=== PATIENT | male | born 2000 | race Caucasian/White ===

== ENCOUNTER 2023-12-16 01:53 | Emergency (ER) | payer OTHER, SELFPAY ==
[2023-12-16 01:55] VITALS: BP 149/93; PULSE 103; RESP 22; TEMP 36.3; O2SAT 96; BMI 30.3
--- NOTE | 2023-12-16 02:04 | EDS_ITS ---
HPI History of Present Illness Chief Complaint: Shortness of Breath Informant: patient and spouse/S.O. Narrative Narrative: Sudden dyspnea wheezing a few hours ago. Forcing self to cough. Denies tobacco. Denies COPD or asthma. Denies recent travel, surgeries, or immobilizations. No history of PE or DVT. Has used inhaler in the past. He states there has been a cat in the house for the last few months, however at this is first time with dyspnea and wheezing episode around the cat. Prior similar symptoms: Yes PFSH PFSH Allergy/AdvReac Type Severity Reaction Status Date / Time No Known Allergies Allergy Verified 12/16/23 01:55 Surgical History [place] teeth extracted Social History Smoking Status: Current every day smoker tobacco type: cigarettes ROS ROS ED Constitutional Constitutional ED: Denies chills, fever(s) or sweats Eyes Eyes: Denies change in vision ENT ENT ED: Denies dysphagia or sore throat Cardiovascular Cardiovascular: Denies chest pain, leg edema, palpitations or racing heartbeat Respiratory/Chest Respiratory/Chest: Reports dyspnea and other Details: Wheezing ; Denies cough or dyspnea on exertion Gastrointestinal Gastrointestinal: Denies abdominal pain, diarrhea, nausea or vomiting Genitourinary Genitourinary ED: Denies dysuria, hematuria or urinary frequency Musculoskeletal Musculoskeletal: Denies back pain, extremity pain or neck pain Integumentary Denies rash or wounds Neurologic Neurologic: Denies headache(s), paresthesias or weakness EXAM Physical Exam Const Vital Signs: 12/16/23 01:55 12/16/23 01:58 12/16/23 02:26 Temperature 97.4 F L Temperature Source Temporal Pulse Rate 103 H 90 Respiratory Rate 22 H 14 Respiratory Effort Short of Breath Respiratory Depth Normal Respiratory Pattern Normal Normal Blood Pressure 149/93 H Blood Pressure Mean 111 Pulse Ox 96 Oxygen Delivery Method Room Air Room Air 12/16/23 02:54 Temperature 98.1 F Temperature Source Pulse Rate 84 Respiratory Rate 16 Respiratory Effort Respiratory Depth Respiratory Pattern Blood Pressure 135/84 H Blood Pressure Mean 101 Pulse Ox 100 Oxygen Delivery Method Positive well nourished and well developed General Appearance ED: well developed and NAD HEENT Reports moist mucous membranes normocephalic and atraumatic Eyes PERRL, EOMs intact bilaterally and conjunctivae normal General Eye ED: Yes normal appearance of both eyes Neck no lymphadenopathy and supple General: Negative for tenderness Chest Wall Chest: Negative for tenderness Resp Resp Narrative: Diffuse expiratory wheezing, no distress Effort and Inspection: symmetric chest movement; Negative for respiratory distress Cardio regular rate, regular rhythm and no murmurs Cardio Narrative: Heart rate 96 Peripheral Pulses: pulses 2+ throughout GI normal to inspection, nondistended, normoactive bowel sounds and non-tender Palpation: Negative for guarding or rebound tenderness present Back/Spine no CVA tenderness and no thoracic nor lumbar tenderness Extremity normal to inspection General Extremety ED: Negative for edema or tenderness General Extremity: Negative for edema Neuro oriented x3 and no sensory deficits noted Sensorium / Orientation: awake and alert Skin no rashes or lesions noted and no wounds MDM MDM MDM Narrative Medical decision making narrative: Interventions / MDM: Differential diagnosis: Bronchospasm, tobacco dependence Diagnosis considered but do not suspect: Pulm embolism however clinical bronchospasm with wheezing. No hypoxia. My EKG interpretation: N/A Imaging independently reviewed and interpreted by myself: N/A External documents reviewed: N/A Test considered but not ordered:N/A ED course: Patient initially declined smoking history however nursing records notes this. Bronchospasm with wheezing without history of asthma. Albuterol MDI ordered for symptom control. 0250: Clinically much better with wheezing improved on reevaluation. Discussed smoking cessation. Inhaler as needed. Outpatient follow-up given. Re-evaluation: stable Disposition discussed with patient/family/significant other: Patient and significant other Case discussed with consulting clinician: N/A This note was generated with [employer] dictation software. It may contain incorrect words, spelling, and punctuation that were not noted in checking the note before signing. Discharge Plan Triage Chief Complaint: Shortness of Breath ED Provider: Sriram Tan Dx/Rx/DC Orders Clinical Impression: Tobacco dependence, Acute bronchospasm Instructions: ED Bronchospasm (Adult) Primary Care Provider: Care Physician,No Primary Referrals: Lenora Ruffin [Non-Staff] - 1-2 Weeks Care Physician,No Primary [Primary Care Provider] - Activity Restrictions/Additional Instructions: Inhaler every 4 hours as needed for wheezing. Tried to stop smoking. Disposition Disposition: Home, Self Care Discharge Date/Time: 12/16/23 03:06
[2023-12-16 02:26] VITALS: PULSE 90; RESP 14
[2023-12-16] MEDS: Albuterol Sulfate 8 gm Inhaler (60 puffs) 2 PUFF INHALATION (02:26)
[2023-12-16 02:54] VITALS: BP 135/84; PULSE 84; RESP 16; TEMP 36.7; O2SAT 100
== END 2023-12-16 03:06 | disposition home or self-care (01) ==
PROVIDERS: Emergency Provider Emergency Medicine; Visit Provider Emergency Medicine
DX: J98.01 Acute bronchospasm (principal); F17.210 Nicotine dependence, cigarettes, uncomplicated
CPT/HCPCS: 94640; 99282

== ENCOUNTER 2023-12-30 10:49 | Emergency (ER) | payer OTHER, SELFPAY ==
[2023-12-30 10:50] VITALS: BP 136/87; PULSE 78; RESP 14; TEMP 35.9; O2SAT 98; BMI 29.6
--- NOTE | 2023-12-30 11:10 | EX.ED.VIS.EY ---
HPI <DANII Mcclain - Last Filed: 12/30/23 12:12> History of Present Illness Chief Complaint: Eye Problem Narrative Narrative: Patient presenting with foreign body sensation to his right eye. He reports that this morning he was working on his lawnmower and was sharpening the blade when he felt something go into his eye. He tried to flush it with water but still had the sensation, prompting him to come here. He does not wear contacts or glasses. He denies any decreased visual acuity, photophobia, or blurred vision. PFSH <DANII Mcclain - Last Filed: 12/30/23 12:12> PFSH Allergy/AdvReac Type Severity Reaction Status Date / Time No Known Allergies Allergy Verified 12/30/23 10:50 Surgical History [place] teeth extracted Social History Smoking Status: Never smoker ROS <DANII Mcclain - Last Filed: 12/30/23 12:12> ROS ED Constitutional Constitutional ED: Denies chills or fever(s) Eyes Eyes: Denies blurry vision or diplopia Cardiovascular Cardiovascular: Denies chest pain Respiratory/Chest Respiratory/Chest: Denies cough or dyspnea Gastrointestinal Gastrointestinal: Denies abdominal pain, nausea or vomiting Musculoskeletal Musculoskeletal: Denies arthralgias or myalgias Integumentary Denies abscess, Abrasions or rash Neurologic Neurologic: Denies headache(s) EXAM <DANII Mcclain - Last Filed: 12/30/23 12:12> Physical Exam Const Vital Signs: 12/30/23 10:50 Temperature 96.6 F L Temperature Source Temporal Pulse Rate 78 Respiratory Rate 14 Blood Pressure 136/87 H Blood Pressure Mean 103 Pulse Ox 98 Oxygen Delivery Method Room Air Positive well nourished, well developed and no apparent distress General Appearance ED: well developed HEENT Reports normocephalic and head/scalp atraumatic Mouth ED: Yes moist mucous membranes normal Eyes PERRL and EOMs intact bilaterally Eyes Narrative: Small foreign body located under the right upper eyelid. No conjunctival injection. Neck full ROM and supple Chest Wall inspection of chest normal Resp normal respiratory effort and clear to auscultation bilaterally Cardio regular rate and regular rhythm GI soft to palpation, non-tender, non-distended and no masses Back/Spine normal ROM and normal to inspection Extremity normal to inspection and full ROM Neuro oriented x3, CN's II-XII intact bilaterally, moves all extremities, no focal motor deficits and no sensory deficits noted Sensorium / Orientation: awake and alert Psych mental status grossly normal and thought process normal Skin no rashes or lesions noted and no wounds [facility] <DANII Mcclain - Last Filed: 12/30/23 12:12> [facility] Narrative Medical decision making narrative: Patient presenting with foreign body sensation to his right eye. I did remove a small foreign body from under the right upper lid, he then reported immediate improvement of his symptoms. Tetracaine was administered and eye stained with fluorescein by the attending, no evidence of corneal abrasion on slit lamp examination. Given patient's symptoms have resolved, he will be discharged home in stable condition. I have personally performed a face to face assessment of the patient and have reviewed the LISA Note. I performed a substantive portion of the visit including all aspects of the following. My goldberg findings include: History is remarkable for foreign body sensation right eye. Patient was sharpening a lawnmower blade. Believes something went into his eye. Patient initially seen by physician assistant to the vice president. There was a small foreign body removed from under the upper eyelid. Patient's pain essentially resolved. He does not wear contacts or glasses. He has no prior history of eye trauma. Is no history of glaucoma. Exam is patient appears no distress. Pupils equal round reactive. Extract muscle tach. Sclera is anicteric. Sclera is noninjected. Conjunctive is normal. Patient's eye was anesthetized with tetracaine. It was then stained with fluorescein. Under slit-lamp examination there was no evidence of corneal abrasion. Anterior chamber was normal with no evidence of flare or cells. Medical Decision Making patient with foreign body under upper eyelid need to evaluate for corneal abrasion. There is no concern for infection or penetration of the globe. Other additions or changes: [None] <Dr. Jurgen Ruiz MD - Last Filed: 12/30/23 15:46> [facility] Narrative Medical decision making narrative: I have personally performed a face to face assessment of the patient and have reviewed the LISA Note. I performed a substantive portion of the visit including all aspects of the following. My goldberg findings include: History is remarkable for foreign body sensation right eye. Patient was sharpening a lawnmower blade. Believes something went into his eye. Patient initially seen by physician assistant to the vice president. There was a small foreign body removed from under the upper eyelid. Patient's pain essentially resolved. He does not wear contacts or glasses. He has no prior history of eye trauma. Is no history of glaucoma. Exam is patient appears no distress. Pupils equal round reactive. Extract muscle tach. Sclera is anicteric. Sclera is noninjected. Conjunctive is normal. Patient's eye was anesthetized with tetracaine. It was then stained with fluorescein. Under slit-lamp examination there was no evidence of corneal abrasion. Anterior chamber was normal with no evidence of flare or cells. Medical Decision Making patient with foreign body under upper eyelid need to evaluate for corneal abrasion. There is no concern for infection or penetration of the globe. Other additions or changes: [None] Discharge Plan Triage Chief Complaint: Eye Problem ED Midlevel Provider: Whit Alvarez ED Provider: Jurgen Ruiz Dx/Rx/DC Orders Clinical Impression: Foreign body of eyelid, right Instructions: Foreign Object in the Cornea Primary Care Provider: Care Physician,No Primary Referrals: Care Physician,No Primary [Primary Care Provider] - Activity Restrictions/Additional Instructions: Please return for any worsening of your symptoms. Disposition Disposition: Home, Self Care Discharge Date/Time: 12/30/23 11:45
[2023-12-30] MEDS: Fluorescein 1 MG STRIP 1 STRIP LEFT EYE (11:13)
[2023-12-30] MEDS: Tetracaine 0.5% Ophthalmic Bottle 1 DRP RIGHT EYE (11:41)
== END 2023-12-30 11:45 | disposition home or self-care (01) ==
PROVIDERS: Emergency Provider Emergency Medicine; Visit Provider Emergency Medicine
DX: T15.91XA Foreign body on external eye, part unspecified, right eye, initial encounter (principal); X58.XXXA Exposure to other specified factors, initial encounter
CPT/HCPCS: 99283